=== PATIENT | male | born 1955 | race Caucasian/White ===

== ENCOUNTER → 2018-04-03 | Outpatient (CLI) | payer BC ==
[~2018-04-03] MED LIST: MINERAL OIL/PETROLAT/GLYCERI 6OZ BTL ONE
[2018-04-03 17:41] LABS: BASOPHILS # (AUTO) 0.1 (0.0-0.1); BASOPHILS % 0.7 % (0.0-1.0); EOSINOPHILS # (AUTO) 0.2 (0.0-0.4); EOSINOPHILS % 3.2 % (0.0-6.0); HEMATOCRIT 41.8 % (38.2-49.6); HEMOGLOBIN 13.5 g/dL (14.0-18.0); LYMPHOCYTES % 41.3 % (18.0-39.1); MEAN CORPUSCULAR HEMOGLOBIN 29.9 pg (28-32); MEAN CORPUSCULAR HGB CONC 32.3 g/dL (31-35); MEAN CORPUSCULAR VOLUME 92.7 fL (81-99); MONOCYTES # (AUTO) 0.6 (0.2-0.8); MONOCYTES % 8.4 % (4.4-11.3); NEUTROPHILS # (AUTO) 3.3 (2.1-6.9); NEUTROPHILS % 46.3 % (38.7-80.0); PLATELET COUNT 278 x10e3/uL (140-360); RED BLOOD COUNT 4.51 x10e6/uL (4.3-5.7)
[2018-04-03 17:54] LABS: ALBUMIN 3.5 g/dL (3.5-5.0); ALBUMIN/GLOBULIN RATIO 0.9 (0.8-2.0); ANION GAP 17.9 mmol/L (8-16); CALCIUM 9.4 mg/dL (8.4-10.2); CREATININE, SERUM 2.13 mg/dL (0.72-1.25)
[2018-04-03 17:56] LABS: POTASSIUM 5.9 mmol/L (3.5-5.1)
== END ==
LOC: WCC 15:17
PROVIDERS: ATTEND Podiatrist Foot & Ankle Surgery
DX: E11.621 Type 2 diabetes mellitus with foot ulcer (principal); L97.221 Non-pressure chronic ulcer of left calf limited to breakdown of skin; L97.521 Non-pressure chronic ulcer of other part of left foot limited to breakdown of skin; L97.811 Non-pressure chronic ulcer of other part of right lower leg limited to breakdown of skin; I87.332 Chronic venous hypertension (idiopathic) with ulcer and inflammation of left lower extremity; I87.331 Chronic venous hypertension (idiopathic) with ulcer and inflammation of right lower extremity; I87.2 Venous insufficiency (chronic) (peripheral); R60.0 Localized edema; I10 Essential (primary) hypertension; E66.01 Morbid (severe) obesity due to excess calories; E78.00 Pure hypercholesterolemia, unspecified; I70.203 Unspecified atherosclerosis of native arteries of extremities, bilateral legs
CPT/HCPCS: 36415; 80053; 83036; 84134; 85025

== ENCOUNTER → 2018-04-23 | Day surgery (SDC) | payer BC ==
[2018-04-22 16:31] LABS: BASOPHILS # (AUTO) 0.1 (0.0-0.1); BASOPHILS % 0.7 % (0.0-1.0); EOSINOPHILS # (AUTO) 0.3 (0.0-0.4); EOSINOPHILS % 3.5 % (0.0-6.0); HEMATOCRIT 42.8 % (38.2-49.6); HEMOGLOBIN 13.8 g/dL (14.0-18.0); LYMPHOCYTES # (AUTO) 3.4 (1.0-3.2); LYMPHOCYTES % 40.7 % (18.0-39.1); MEAN CORPUSCULAR HEMOGLOBIN 30.1 pg (28-32); MEAN CORPUSCULAR HGB CONC 32.2 g/dL (31-35); MEAN CORPUSCULAR VOLUME 93.2 fL (81-99); MONOCYTES # (AUTO) 0.6 (0.2-0.8); MONOCYTES % 6.7 % (4.4-11.3); NEUTROPHILS # (AUTO) 4.1 (2.1-6.9); NEUTROPHILS % 48.3 % (38.7-80.0); PLATELET COUNT 232 x10e3/uL (140-360); RED BLOOD COUNT 4.59 x10e6/uL (4.3-5.7); RED CELL DISTRIBUTION WIDTH 13.1 % (11.7-14.4)
[2018-04-22 16:49] LABS: ALBUMIN 3.6 g/dL (3.5-5.0); ALBUMIN/GLOBULIN RATIO 0.9 (0.8-2.0); ANION GAP 14.4 mmol/L (8-16); CALCIUM 9.9 mg/dL (8.4-10.2); CREATININE, SERUM 1.59 mg/dL (0.72-1.25)
[2018-04-22 16:51] LABS: POTASSIUM 6.4 mmol/L (3.5-5.1)
[2018-04-23] VITALS (9 sets, daily range): BP systolic 124–174; BP diastolic 59–78
[~2018-04-23] VITALS: Ht 177.8 cm; Wt 127.0 kg
[~2018-04-23] MED LIST changes: +ALPRAZOLAM 0.5 MG TAB ONE; +BACTRIM DS TAB1 EACH PO; +BUTALB-ACETAMI1 EACH PO; +DIPHENHYDRAMINE HCL 25 MG CAP ONE; +GABAPENTIN300 MG PO; +GLIMEPIRIDE2 MG PO; +Invokana PO; +MELOXICAM7.5 MG PO; +METFORMIN HCL500 MG PO; +METOPROLOL TART25 MG PO; -MINERAL OIL/PETROLAT/GLYCERI 6OZ BTL ONE; +PENTOXIFYLLINE400 MG PO; +PIOGLITAZONE HC45 MG PO; +SIMVASTATIN20 MG PO; +SODIUM CHLORIDE 0.9% 1000ML 1,000 ML ONE; +ZESTORETIC 20-1 EACH PO
[2018-04-23 11:56] LABS: ALBUMIN 3.3 g/dL (3.5-5.0); ALBUMIN/GLOBULIN RATIO 1.1 (0.8-2.0); ANION GAP 11.3 mmol/L (8-16); CREATININE, SERUM 1.24 mg/dL (0.72-1.25)
[2018-04-23 11:58] LABS: POTASSIUM 6.3 mmol/L (3.5-5.1)
--- NOTE | 2018-04-24 00:28 | Operative Report ---
DATE OF PROCEDURE: April 23, 2018 CARDIAC COMPUTER TRAINING SPECIALIST PROCEDURE NOTE INDICATIONS: Peripheral arterial disease and claudication. PROCEDURES PERFORMED: 1. Abdominal aorta catheter placement. 2. Bilateral lower extremity angiograms. 3. Selective catheter placement of right femoral artery and left superficial femoral artery. 4. Atherectomy and angioplasty of the left posterior tibial artery. 5. Atherectomy and angioplasty of the left popliteal artery. 6. Deployment of right groin Mynx closer device. COMPLICATIONS: None. RECOMMENDATIONS: Dual antiplatelet therapy. Access obtained in the right femoral artery. Abdominal aortogram demonstrated minimal disease in abdominal aorta and iliacs bilaterally. The catheter was advanced from the right femoral to left superficial femoral artery. The femoral-popliteal arteries were widely patent. Anterior tibial artery was completely occluded without evidence of reconstitution. The peroneal artery on the left side had moderate disease. The left posterior tibial artery had diffuse 90% stenosis. A decision was made to intervene on the posterior tibial artery. The patient received heparin for anticoagulation. Lesions were crossed using a Glidewire. Orbital atherectomy was performed of the left popliteal and left posterior tibial artery with large amounts of visible thrombus for which secondary aspiration thrombectomy was needed. Balloon angioplasty with a 2.5 mm balloon, excellent end result, single-vessel runoff to the foot via the posterior tibial artery. No complications. Right groin repaired using Mynx closure device. Patient was discharged home same day. Job#: [id number]
== END | disposition home or self-care (01) ==
LOC: CATH LAB 09:12
PROVIDERS: ATTEND Internal Medicine Interventional Cardiology
DX: I70.212 Atherosclerosis of native arteries of extremities with intermittent claudication, left leg (principal); L98.499 Non-pressure chronic ulcer of skin of other sites with unspecified severity; E13.8 Other specified diabetes mellitus with unspecified complications; I10 Essential (primary) hypertension; Z01.812 Encounter for preprocedural laboratory examination; Z79.84 Long term (current) use of oral hypoglycemic drugs; Z68.39 Body mass index [BMI] 39.0-39.9, adult; Z96.641 Presence of right artificial hip joint; Z83.3 Family history of diabetes mellitus
CPT/HCPCS: 36415 ×2; 37225; 37229; 80053 ×2; 80061; 85025; C1724; C1725; C1769; C1887; J7030; 36140; 92924

== ENCOUNTER 2018-06-11 10:37 | Observation (INO) | payer BC ==
[2018-06-10 16:00] LABS: BASOPHILS # (AUTO) 0.1 (0.0-0.1); BASOPHILS % 0.7 % (0.0-1.0); EOSINOPHILS # (AUTO) 0.3 (0.0-0.4); EOSINOPHILS % 4.1 % (0.0-6.0); HEMATOCRIT 35.8 % (38.2-49.6); HEMOGLOBIN 11.5 g/dL (14.0-18.0); LYMPHOCYTES # (AUTO) 1.9 (1.0-3.2); LYMPHOCYTES % 27.5 % (18.0-39.1); MEAN CORPUSCULAR HEMOGLOBIN 29.9 pg (28-32); MEAN CORPUSCULAR HGB CONC 32.1 g/dL (31-35); MONOCYTES # (AUTO) 0.7 (0.2-0.8); MONOCYTES % 9.4 % (4.4-11.3); NEUTROPHILS # (AUTO) 4.1 (2.1-6.9); PLATELET COUNT 307 x10e3/uL (140-360); RED BLOOD COUNT 3.85 x10e6/uL (4.3-5.7); RED CELL DISTRIBUTION WIDTH 13.8 % (11.7-14.4)
[2018-06-10 16:13] LABS: INR 0.92; PROTHROMBIN TIME 13.2 seconds (11.9-14.5)
[2018-06-10 16:20] LABS: ALBUMIN 3.4 g/dL (3.5-5.0); ALBUMIN/GLOBULIN RATIO 0.8 (0.8-2.0); ANION GAP 14.1 mmol/L (8-16); CALCIUM 9.2 mg/dL (8.4-10.2); CREATININE, SERUM 1.66 mg/dL (0.72-1.25); POTASSIUM 4.1 mmol/L (3.5-5.1)
[~2018-06-11] VITALS: Ht 177.8 cm; Wt 131.1 kg
[2018-06-11] VITALS (13 sets, daily range): BP systolic 99–154; BP diastolic 55–90
[~2018-06-11 10:37] MED LIST changes: -ALPRAZOLAM 0.5 MG TAB ONE; +CLOPIDOGREL75 MG PO; -DIPHENHYDRAMINE HCL 25 MG CAP ONE; -SODIUM CHLORIDE 0.9% 1000ML 1,000 ML ONE
[2018-06-11] MEDS ORDERED: HEPARIN SOD/SOD CHLORIDE 2,000 ML ONE (13:23)
[2018-06-11] MEDS ORDERED: MIDAZOLAM HCL 2 MG/2 ML VIAL ONE ×2 (13:23→13:58)
[2018-06-11] MEDS ORDERED: LIDOCAINE HCL 2% LOCAL 20 ML VIAL ONE (13:23)
[2018-06-11] MEDS ORDERED: FENTANYL CITRATE/PF 100MCG/2 ML INJ ONE (13:23)
[2018-06-11] MEDS ORDERED: IOPAMIDOL 370 MG/ML 200 ML INFUS..BTL INJ ONE (13:24)
[2018-06-11] MEDS ORDERED: VERAPAMIL HCL 2.5 MG/ML 2 ML VIAL ONE (13:41)
[2018-06-11] MEDS ORDERED: NITROGLYCERIN/D5W 200 MCG/ML 250 ML ONE (13:41)
[2018-06-11] MEDS ORDERED: SODIUM CHLORIDE 0.9% 1000ML 1,000 ML ONE (13:41)
[2018-06-11] MEDS ORDERED: HEPARIN SOD (PORCINE) 1000 UNIT/ML 30ML ONE (13:41)
[2018-06-11] MEDS ORDERED: IOPAMIDOL 300MG/ML 100 ML INFUS..BTL IV ONE (13:57)
[2018-06-11] MEDS ORDERED: HYDRALAZINE HCL 20 MG/ML VIAL ONE ×2 (14:17→14:23)
[2018-06-11] MEDS ORDERED: PROTAMINE SULFATE 10 MG/ML 5 ML VIAL ONE (15:22)
--- NOTE | 2018-06-11 16:52 | Operative Report ---
DATE OF PROCEDURE: June 11, 2018 PROCEDURES PERFORMED 1. Third-order catheter placement from the left femoral artery to the right superficial femoral artery with unilateral extremity angiogram. 2. Additional 3rd-order catheter placement from the left femoral artery to the right posterior tibial artery. 3. Atherectomy and angioplasty of the right posterior tibial artery. 4. Deployment left groin Mynx closure device. COMPLICATIONS: None. RECOMMENDATIONS: Dual antiplatelet therapy. Access in the left femoral artery was obtained. A 6-[place] sheath was placed and was advanced to the right femoral artery (3rd-order catheter placement). Complete occlusion of the right anterior tibial artery. Additional 3rd-order catheter placement was performed to the right posterior tibial artery confirming 80% stenosis of the proximal posterior tibial artery. Peroneal artery was patent. A decision was made to intervene on the right posterior tibial artery. The patient received intravenous heparin for anticoagulation. Orbital atherectomy was performed using a 1.25-mm [place]. Large amounts of visible thrombus necessitating secondary aspiration thrombectomy. Balloon angioplasty with a 3-mm balloon resulted in excellent end result. Two-vessel runoff to the right foot. Left groin repaired using Mynx closure device. Patient was discharged home the same day. Job#: [id number]
[2018-06-11] MEDS ORDERED: MORPHINE SULFATE INJ 4 MG/ML INJ IV PRN (18:00)
[2018-06-11] MEDS ORDERED: HYDRALAZINE HCL 20 MG/ML VIAL IV PRN (18:00)
[2018-06-11] MEDS ORDERED: SIMVASTATIN 20 MG TAB PO SCH (21:00)
[2018-06-11] MEDS: GABAPENTIN 300 MG CAP PO SCH (21:19)
[2018-06-12] VITALS: BP 126/64
[2018-06-12 04:00] VITALS: BP 158/69
[2018-06-12] MEDS ORDERED: GLIMEPIRIDE 2 MG TAB PO SCH (08:00)
[2018-06-12 08:15] VITALS: BP 160/70
[2018-06-12] MEDS: GABAPENTIN 300 MG CAP PO SCH (08:52)
[2018-06-12] MEDS ORDERED: CANAGLIFLOZIN 100 MG TABLET PO SCH (09:00)
[2018-06-12] MEDS ORDERED: METOPROLOL TARTRATE 25 MG TAB PO SCH (09:00)
[2018-06-12] MEDS ORDERED: PIOGLITAZONE HCL 15 MG TAB PO SCH (09:00)
[2018-06-12] MEDS ORDERED: CLOPIDOGREL BISULFATE 75 MG TAB PO SCH (09:00)
[2018-06-12] MEDS ORDERED: HYDROCHLOROTHIAZIDE 25 MG TAB PO SCH (09:00)
[2018-06-12] MEDS ORDERED: MELOXICAM 7.5 MG TAB PO SCH (09:00)
[2018-06-12] MEDS ORDERED: LISINOPRIL 20 MG TAB PO SCH (09:00)
[2018-06-12 09:07] VITALS: BP 160/70
[2018-06-12 11:15] VITALS: BP 105/53
[2018-06-13] MEDS ORDERED: METFORMIN HCL 500 MG TAB PO SCH (14:15)
== END 2018-06-12 14:17 | disposition home or self-care (01) ==
LOC: CATH LAB 10:37 → PACU V 16:44 → IMCU 17:22
PROVIDERS: ADMIT Internal Medicine Interventional Cardiology; ATTEND Internal Medicine Interventional Cardiology
DX: E11.51 Type 2 diabetes mellitus with diabetic peripheral angiopathy without gangrene (principal); E87.5 Hyperkalemia; I10 Essential (primary) hypertension; I45.5 Other specified heart block; Z79.84 Long term (current) use of oral hypoglycemic drugs; Z83.3 Family history of diabetes mellitus; Z96.641 Presence of right artificial hip joint
CPT/HCPCS: 36415 ×3; 37229; 80053; 82948 ×2; 85025; 85610; G0378 ×2; J0360; J1644; J2001; J2250; J2270; J2720; J7030; Q9967 ×2